=== PATIENT | female | born 1975 | race Caucasian/White ===

== ENCOUNTER → 2016-08-30 | Outpatient (CLI) | payer BC, OTHER ==
--- NOTE | 2016-08-30 09:04 | KCIC ---
PROCEDURE Bilateral digital screening mammogram. HISTORY 41-year-old female presents for screening mammography. TECHNIQUE Full field digital craniocaudal and mediolateral oblique views of both breasts are obtained. Computer-aided detection is applied. COMPARISON 08/24/2015. FINDINGS Breast parenchymal composition: Level C - Heterogeneously dense. There is no suspicious mass, calcification or architectural distortion within either breast. IMPRESSION BI-RADS category 2: Benign finding. Annual mammography is recommended. Mammography is not 100% sensitive in detecting breast cancer. Therefore, a self breast exam and a clinical breast exam are very important. A negative mammogram does not negate a clinically suspicious finding and should not result in a delay in biopsying a clinically suspicious abnormality. This patient's information has been entered into a reminder system for the patient to be notified with the results of this examination and a target date for her next mammograms. Electronically signed by: Estrellita Lombardi (Aug 30, 2016 09:03:29)
== END | disposition home or self-care (01) ==
LOC: KCIC MAMMO 08:09
PROVIDERS: ATTEND Obstetrics & Gynecology
DX: Z12.31 Encounter for screening mammogram for malignant neoplasm of breast (principal)
CPT/HCPCS: G0202; 77067

== ENCOUNTER → 2017-09-23 | Outpatient (CLI) | payer BC | END | disposition home or self-care (01) | LOC: KCIC MAMMO 09:48 | DX: Z12.31 Encounter for screening mammogram for malignant neoplasm of breast (principal) | CPT/HCPCS: 77063; 77067 ==